=== PATIENT | female | born 1965 | race African-American/Black ===

== ENCOUNTER 2016-06-14 10:44 | Emergency (ER) | payer OTHER ==
[~2016-06-14] VITALS: Ht 175.3 cm; Wt 61.3 kg
[~2016-06-14 10:44] MED LIST: ACYCLOVIR200 MG PO; CATAPRES0.1 MG PO; IRON27 MG PO; IRON325 M1 PO; KEFLEX500 MG PO; LOPRESSOR25 MG PO; PAXIL CR25 MG PO; PERCOCET 5/31 TABLET PO; XANAX0.5 MG PO
[2016-06-14 11:30] VITALS: BP 161/92
== END 2016-06-14 16:51 | disposition left against medical advice (07) ==
LOC: EME 10:44
DX: Z03.89 Encounter for observation for other suspected diseases and conditions ruled out (principal); Z53.21 Procedure and treatment not carried out due to patient leaving prior to being seen by health care provider

== ENCOUNTER 2016-06-14 17:21 | Emergency (ER) | payer OTHER ==
[~2016-06-14] VITALS: Ht 175.3 cm; Wt 60.3 kg
[2016-06-14 18:16] LABS: POINT-OF-CARE METER ID UU13113778
[2016-06-14 18:24] LABS: HEMATOCRIT 41.5 % (36.0-46.0); MCH 27.2 PG (29.0-34.0); MCHC 33.3 G/DL (30.0-36.0); MCV 81.7 FL (83-99); MEAN PLAT.VOLUME 10.3 uM^3 (9.5-12.4); PLATELET COUNT 295 K/uL (156-360); RBC DIS.WIDTH-CV 15.9 % (11.8-14.6); RBC DIS.WIDTH-SD 46.7 % (39-53); RED BLOOD COUNT 5.08 M/uL (3.80-5.20); WHITE BLOOD COUNT 6.9 K/uL (4.1-10.2)
[2016-06-14 18:33] LABS: CHLORIDE 109 mEq/L (99-109); POTASSIUM 4.4 mEq/L (3.7-5.4); SODIUM 143 mEq/L (136-147)
[2016-06-14 18:35] LABS: GLUCOSE 87 mg/dL (70-99)
[2016-06-14 18:36] LABS: ANION GAP 13 MEQ/L (2-14)
[2016-06-14 18:38] LABS: GFR ESTIMATE (CALCULATED) > 59 mL/min/
[2016-06-14 18:39] LABS: UREA NITROGEN (BUN) 6 mg/dL (9-23)
[2016-06-14 18:45] LABS: TROP-I INTERPRETATION NEGATIVE; TROPONIN-I < 0.01 ng/mL (0.0-0.30)
[2016-06-14 22:28] VITALS: BP 160/108
== END 2016-06-14 22:28 | disposition home or self-care (01) ==
LOC: EME 17:21
DX: I10 Essential (primary) hypertension (principal); J44.9 Chronic obstructive pulmonary disease, unspecified; G89.29 Other chronic pain; F17.200 Nicotine dependence, unspecified, uncomplicated
CPT/HCPCS: 71020; 80048; 82948; 84484; 85027; 93005; 99281; 99285

== ENCOUNTER 2016-06-19 18:34 | Observation (INO) | payer OTHER ==
[~2016-06-19] VITALS: Ht 175.3 cm; Wt 58.5 kg
[2016-06-19] MEDS ORDERED: LOSARTAN POTASS25 MG PO (18:55)
[2016-06-19] MEDS ORDERED: DAILY VALUE1 EACH PO (18:57)
[2016-06-19 19:06] LABS: HEMATOCRIT 39.4 % (36.0-46.0); MCH 27.8 PG (29.0-34.0); MCHC 33.8 G/DL (30.0-36.0); MCV 82.3 FL (83-99); MEAN PLAT.VOLUME 10.1 uM^3 (9.5-12.4); PLATELET COUNT 212 K/uL (156-360); RBC DIS.WIDTH-CV 16.5 % (11.8-14.6); RBC DIS.WIDTH-SD 48.9 % (39-53); RED BLOOD COUNT 4.79 M/uL (3.80-5.20); WHITE BLOOD COUNT 5.9 K/uL (4.1-10.2)
[2016-06-19 19:20] LABS: CHLORIDE 108 mEq/L (99-109); POTASSIUM 3.7 mEq/L (3.7-5.4); SODIUM 140 mEq/L (136-147)
[2016-06-19 19:21] LABS: GLUCOSE 100 mg/dL (70-99)
[2016-06-19 19:23] LABS: ANION GAP 9 MEQ/L (2-14)
[2016-06-19 19:25] LABS: GFR ESTIMATE (CALCULATED) > 59 mL/min/
[2016-06-19 19:26] LABS: UREA NITROGEN (BUN) 7 mg/dL (9-23)
[2016-06-19 19:31] LABS: TROP-I INTERPRETATION NEGATIVE; TROPONIN-I < 0.01 ng/mL (0.0-0.30)
[2016-06-19 19:33] LABS: QUANTITATIVE HCG < 4.0 MIU/ML
[2016-06-19] MEDS ORDERED: PAXIL20 MG PO (21:45)
[2016-06-19] MEDS ORDERED: FAMVIR250 MG PO (21:46)
[2016-06-19] MEDS ORDERED: GABAPENTIN600 MG PO (21:46)
[2016-06-19 23:42] VITALS: BP 136/82
[2016-06-20 01:55] LABS: TROP-I INTERPRETATION NEGATIVE; TROPONIN-I < 0.01 ng/mL (0.0-0.30)
[2016-06-20 03:55] VITALS: BP 123/83
[2016-06-20 04:52] LABS: HDL CHOLESTEROL 48 MG/DL (Desirable>=50); LDL CHOLESTEROL 89 mg/dL (Desirable<100); NON-HDL CHOLESTEROL 99 mg/dL (Desirable<160); TOTAL CHOLESTEROL 147 mg/dL (Desirable<200); TRIGLYCERIDES 48 MG/DL (Normal: <150)
[2016-06-20 07:56] LABS: Estimated Average Glucose 94 mg/dL (70-123); HEMOGLOBIN A1c (GLYCOHEMOGLOB) 4.9 % HGB (Below 5.7)
[2016-06-20 09:02] LABS: TROP-I INTERPRETATION NEGATIVE; TROPONIN-I 0.02 ng/mL (0.0-0.30)
[2016-06-20 10:30] VITALS: BP 147/82
[2016-06-20] MEDS ORDERED: PRAVASTATIN SOD40 MG PO (13:12)
[2016-06-20] MEDS ORDERED: HYDROCHLOROTHIA25 MG PO (13:12)
[2016-06-20] MEDS ORDERED: ASPIR-LOW81 MG PO (13:12)
== END 2016-06-20 15:32 | disposition home or self-care (01) ==
LOC: EME 18:34 → EDOF 22:13 → 5WEST 22:13
PROVIDERS: Emergency Medicine; Family Medicine
DX: R20.0 Anesthesia of skin (principal); R07.89 Other chest pain; I16.0 Hypertensive urgency; I10 Essential (primary) hypertension; F41.9 Anxiety disorder, unspecified; F32.9 Major depressive disorder, single episode, unspecified; F17.200 Nicotine dependence, unspecified, uncomplicated; G89.29 Other chronic pain
CPT/HCPCS: 70450; 70551; 71020; 80048; 80061; 83036; 84443; 84484; 84702; 85027; 93005; 93880; 99281; 99285; G0378; J0360

== ENCOUNTER 2016-06-21 20:15 | Emergency (ER) | payer OTHER ==
[~2016-06-21] VITALS: Ht 175.3 cm; Wt 59.0 kg
[~2016-06-21 20:15] MED LIST changes: +ASPIR-LOW81 MG PO; +DAILY VALUE1 EACH PO; +FAMVIR250 MG PO; +GABAPENTIN600 MG PO; +HYDROCHLOROTHIA25 MG PO; +LOSARTAN POTASS25 MG PO; +PAXIL20 MG PO; +PRAVASTATIN SOD40 MG PO
[2016-06-21 21:05] LABS: HEMATOCRIT 38.9 % (36.0-46.0); MCH 27.2 PG (29.0-34.0); MCHC 33.7 G/DL (30.0-36.0); MCV 80.7 FL (83-99); MEAN PLAT.VOLUME 10.1 uM^3 (9.5-12.4); PLATELET COUNT 206 K/uL (156-360); RBC DIS.WIDTH-SD 47.2 % (39-53); RED BLOOD COUNT 4.82 M/uL (3.80-5.20)
[2016-06-21 21:14] LABS: CHLORIDE 102 mEq/L (99-109); POTASSIUM 3.1 mEq/L (3.7-5.4); SODIUM 135 mEq/L (136-147)
[2016-06-21 21:16] LABS: GLUCOSE 83 mg/dL (70-99)
[2016-06-21 21:18] LABS: ANION GAP 11 MEQ/L (2-14); TOTAL BILIRUBIN 0.4 mg/dL (0.0-1.0)
[2016-06-21 21:20] LABS: ALKALINE PHOSPHATASE 63 IU/L (3-129); GFR ESTIMATE (CALCULATED) > 59 mL/min/
[2016-06-21 21:21] LABS: UREA NITROGEN (BUN) 10 mg/dL (9-23)
[2016-06-21 21:32] LABS: QUANTITATIVE HCG < 4.0 MIU/ML
[2016-06-21 22:52] LABS: COLOR RED ((YELLOW)); SPECIFIC GRAVITY 1.005 (1.000-1.030)
[2016-06-21 22:53] LABS: ADD MIUA? YES; RED BLOOD CELLS TNTC /HPF (0-5)
[2016-06-21 22:53] LABS: TROP-I INTERPRETATION NEGATIVE; TROPONIN-I < 0.01 ng/mL (0.0-0.30)
[2016-06-21 22:54] LABS: EPITHELIAL CELLS 1+ /HPF; WHITE BLOOD CELLS 20-30 /HPF (0-5)
[2016-06-21 22:55] LABS: BACTERIA 2+ /HPF; MUCUS NONE SEEN /LPF; UCUL ADDED? YES
[2016-06-22 00:44] VITALS: BP 112/91
== END 2016-06-22 01:26 | disposition home or self-care (01) ==
LOC: EME 20:15
PROVIDERS: Emergency Medicine
DX: R53.1 Weakness (principal); E86.0 Dehydration; T50.2X5A Adverse effect of carbonic-anhydrase inhibitors, benzothiadiazides and other diuretics, initial encounter; F32.9 Major depressive disorder, single episode, unspecified; F41.1 Generalized anxiety disorder
CPT/HCPCS: 80053; 81003; 84484; 84702; 85027; 87086; 93005; 99281; 99284; J7030

== ENCOUNTER 2016-09-09 10:50 | Day surgery (SDC) | payer OTHER ==
[~2016-09-09] VITALS: Ht 175.3 cm; Wt 64.9 kg
[~2016-09-09 10:50] MED LIST changes: +ADVAIR 250/501 DISK IH; +LO-DOSE ASPIRIN81 M2 PO
[2016-09-09 11:10] VITALS: BP 152/93
[2016-09-09 12:38] LABS: METH RESISTANT S AUREUS PCR NEGATIVE (NEGATIVE)
[2016-09-09 12:40] LABS: PROBE CHECK PASS; SPECIMEN PROCESSING CONTROL PASS
== END 2016-09-09 11:30 | disposition home or self-care (01) ==
LOC: 2SOUTH 10:50 → SDC 10:50 → 2SOUTH 10:52 → SDC 11:30 → 2SOUTH 11:34 → EDSTATUS 14:55 → 2SOUTH 16:14
PROVIDERS: Obstetrics & Gynecology Gynecologic Oncology
DX: N92.0 Excessive and frequent menstruation with regular cycle (principal); Z53.8 Procedure and treatment not carried out for other reasons; I10 Essential (primary) hypertension; F17.210 Nicotine dependence, cigarettes, uncomplicated
CPT/HCPCS: 87641; J0690; J2250; J3010

== ENCOUNTER 2016-09-21 08:09 | Emergency (ER) | payer OTHER ==
[~2016-09-21] VITALS: Ht 175.3 cm; Wt 52.1 kg
[2016-09-21] MEDS ORDERED: ZOVIRAX200 MG PO (08:24)
[2016-09-21 09:08] LABS: CHLORIDE 108 mEq/L (99-109); POTASSIUM 3.6 mEq/L (3.7-5.4); SODIUM 142 mEq/L (136-147)
[2016-09-21 09:09] LABS: BASOPHIL COUNT 0.1 K/uL (0-0.1); EOSINOPHIL (%) 0.9 % (0-5); HEMATOCRIT 29.1 % (36.0-46.0); IMMATURE GRANULOCYTE (%) 0.4 % (0.0-0.7); INSTRUMENT ABS NEUTROPHIL CT 3.3 K/uL; LYMPHOCYTE COUNT 0.9 K/uL (1.0-2.8); MCH 22.4 PG (29.0-34.0); MCHC 30.9 G/DL (30.0-36.0); MCV 72.4 FL (83-99); MEAN PLAT.VOLUME 9.9 uM^3 (9.5-12.4); MONOCYTE (%) 6.4 % (3-12); MONOCYTE COUNT 0.3 K/uL (0-0.8); NEUTROPHIL COUNT 3.3 K/uL (1.8-6.4); PLATELET COUNT 343 K/uL (156-360); RBC DIS.WIDTH-CV 16.9 % (11.8-14.6); RBC DIS.WIDTH-SD 43.9 % (39-53); RED BLOOD COUNT 4.02 M/uL (3.80-5.20); WHITE BLOOD COUNT 4.5 K/uL (4.1-10.2)
[2016-09-21 09:10] LABS: GLUCOSE 93 mg/dL (70-99)
[2016-09-21 09:12] LABS: ANION GAP 9 MEQ/L (2-14)
[2016-09-21 09:14] LABS: GFR ESTIMATE (CALCULATED) > 59 mL/min/
[2016-09-21 09:15] LABS: UREA NITROGEN (BUN) 6 mg/dL (9-23)
[2016-09-21] MEDS ORDERED: BENTYL20 MG PO (09:59)
[2016-09-21] MEDS ORDERED: IMODIUM MS REL1 EACH PO (09:59)
[2016-09-21] MEDS ORDERED: ZOFRAN ODT4 MG PO (09:59)
[2016-09-21 10:24] VITALS: BP 145/86
== END 2016-09-21 10:31 | disposition home or self-care (01) ==
LOC: EME 08:09
PROVIDERS: Emergency Medicine
DX: K52.9 Noninfective gastroenteritis and colitis, unspecified (principal); D64.9 Anemia, unspecified; R51 Headache; R05 Cough; J44.9 Chronic obstructive pulmonary disease, unspecified; I10 Essential (primary) hypertension; Z79.82 Long term (current) use of aspirin; F17.200 Nicotine dependence, unspecified, uncomplicated
CPT/HCPCS: 80048; 85025; 99281; 99284; J7030

== ENCOUNTER 2017-02-07 21:54 | Inpatient (IN) | payer OTHER ==
[~2017-02-07] VITALS: Ht 175.3 cm; Wt 61.7 kg
[~2017-02-07 21:54] MED LIST changes: +BENTYL20 MG PO; +IMODIUM MS REL1 EACH PO; +TOPROL XL25 MG PO; +ZOFRAN ODT4 MG PO; +ZOVIRAX200 MG PO
[2017-02-08 13:01] VITALS: BP 182/107
[2017-02-08 13:42] LABS: AMPHETAMINES QUANT VALUE 0 NG/ML; BARBITUATES QUANT VALUE 0 NG/ML; BENZODIAZEPINES QUANT VALUE 0 NG/ML; BENZODIAZEPINES, URINE SCREEN Negative (200 ng/mL); MARIJUANA QUANT VALUE 0 NG/ML; OPIATES QUANTITATIVE VALUE 0 NG/ML; PHENCYCLIDINE QUANT VALUE 0 NG/ML
[2017-02-08 14:24] LABS: METH RESISTANT S AUREUS PCR NEGATIVE (NEGATIVE); PROBE CHECK PASS; SPECIMEN PROCESSING CONTROL PASS
[2017-02-08 20:18] VITALS: BP 180/99
[2017-02-08 20:40] VITALS: BP 148/96
[2017-02-08 20:49] LABS: HEMATOCRIT 40.8 % (36.0-46.0); MCH 30.7 PG (29.0-34.0); MCHC 34.3 G/DL (30.0-36.0); MCV 89.5 FL (83-99); MEAN PLAT.VOLUME 10.3 uM^3 (9.5-12.4); PLATELET COUNT 146 K/uL (156-360); RBC DIS.WIDTH-CV 13.4 % (11.8-14.6); RBC DIS.WIDTH-SD 44.2 % (39-53); RED BLOOD COUNT 4.56 M/uL (3.80-5.20)
[2017-02-08 21:13] LABS: ANION GAP 8 MEQ/L (2-14); CHLORIDE 106 MEQ/L (99-109); GFR ESTIMATE (CALCULATED) > 59 mL/min/; GLUCOSE 98 mg/dL (70-99); POTASSIUM 3.8 MEQ/L (3.7-5.4); SAMPLE HEMOLYSIS CHECK 0; SAMPLE ICTERIC CHECK 0; SAMPLE LIPEMIA CHECK 0; SODIUM 136 MEQ/L (136-147); UREA NITROGEN (BUN) 7 mg/dL (9-23)
[2017-02-08 22:45] VITALS: BP 160/90
[2017-02-09 03:55] VITALS: BP 150/99
[2017-02-09 06:35] LABS: HEMATOCRIT 39.3 % (36.0-46.0); MCHC 33.1 G/DL (30.0-36.0); MCV 87.5 FL (83-99); MEAN PLAT.VOLUME 10.2 uM^3 (9.5-12.4); PLATELET COUNT 147 K/uL (156-360); RED BLOOD COUNT 4.49 M/uL (3.80-5.20); WHITE BLOOD COUNT 15.7 K/uL (4.1-10.2)
[2017-02-09 06:58] VITALS: BP 180/105
[2017-02-09 07:01] LABS: ANION GAP 8 MEQ/L (2-14); CHLORIDE 101 MEQ/L (99-109); GFR ESTIMATE (CALCULATED) > 59 mL/min/; POTASSIUM 3.9 MEQ/L (3.7-5.4); SAMPLE HEMOLYSIS CHECK 0; SAMPLE ICTERIC CHECK 0; SAMPLE LIPEMIA CHECK 0; SODIUM 132 MEQ/L (136-147); UREA NITROGEN (BUN) 8 mg/dL (9-23)
[2017-02-09 07:05] LABS: GLUCOSE 159 mg/dL (70-99)
[2017-02-09 15:53] VITALS: BP 160/94
[2017-02-09 19:23] VITALS: BP 157/79
[2017-02-09 23:19] VITALS: BP 150/90
[2017-02-10 06:56] LABS: HEMATOCRIT 42.1 % (36.0-46.0); MCH 29.6 PG (29.0-34.0); MCHC 34.2 G/DL (30.0-36.0); MCV 86.4 FL (83-99); RBC DIS.WIDTH-CV 12.9 % (11.8-14.6); RBC DIS.WIDTH-SD 40.7 % (39-53); RED BLOOD COUNT 4.87 M/uL (3.80-5.20); WHITE BLOOD COUNT 12.1 K/uL (4.1-10.2)
[2017-02-10 07:23] LABS: ANION GAP 9 MEQ/L (2-14); CHLORIDE 107 MEQ/L (99-109); GFR ESTIMATE (CALCULATED) > 59 mL/min/; POTASSIUM 3.8 MEQ/L (3.7-5.4); SAMPLE HEMOLYSIS CHECK 0; SAMPLE ICTERIC CHECK 0; SAMPLE LIPEMIA CHECK 0; UREA NITROGEN (BUN) 6 mg/dL (9-23)
[2017-02-10 07:30] LABS: GLUCOSE 100 mg/dL (70-99); SODIUM 141 MEQ/L (136-147)
[2017-02-10 07:32] VITALS: BP 144/97
[2017-02-10 07:39] LABS: MEAN PLAT.VOLUME 10.4 uM^3 (9.5-12.4); PLAT.SUFFICIENCY ADEQUATE; PLATELET COUNT 162 K/uL (156-360)
== END 2017-02-10 10:48 | disposition home or self-care (01) | DRG 743 ==
LOC: ENRESERV 21:54 → 2SOUTH 02-08 09:18 → 2EAST 02-08 12:15 → 2SOUTH 02-08 12:32 → ENRESERV 02-08 18:56 → 2EAST 02-08 19:51
PROVIDERS: Obstetrics & Gynecology Gynecologic Oncology
DX: D25.9 Leiomyoma of uterus, unspecified (principal); D06.9 Carcinoma in situ of cervix, unspecified; N13.5 Crossing vessel and stricture of ureter without hydronephrosis; N73.6 Female pelvic peritoneal adhesions (postinfective); L29.9 Pruritus, unspecified; N93.8 Other specified abnormal uterine and vaginal bleeding; D50.0 Iron deficiency anemia secondary to blood loss (chronic); I10 Essential (primary) hypertension; J44.9 Chronic obstructive pulmonary disease, unspecified; F32.9 Major depressive disorder, single episode, unspecified; F41.9 Anxiety disorder, unspecified; F17.210 Nicotine dependence, cigarettes, uncomplicated; Q63.1 Lobulated, fused and horseshoe kidney; Z79.82 Long term (current) use of aspirin
CPT/HCPCS: 36415; 80048; 80306 90; 85027; 86850; 86900; 86901; 86920; 87641; 88307; J0131; J0330; J0690; J1100; J1170; J1885; J2250; J2405; J2710; J2765; J3010

== ENCOUNTER 2017-04-29 18:58 | Emergency (ER) | payer OTHER ==
[~2017-04-29] VITALS: Ht 175.3 cm; Wt 58.3 kg
[2017-04-29 20:24] LABS: BASOPHIL (%) 0.6 % (0-1); EOSINOPHIL (%) 1.1 % (0-5); EOSINOPHIL COUNT 0.1 K/uL (0-0.3); HEMATOCRIT 45.1 % (36.0-46.0); HEMOGLOBIN 15.4 G/DL (11.9-15.5); IMMATURE GRANULOCYTE (%) 0.3 % (0.0-0.7); LYMPHOCYTE (%) 24.9 % (15-42); LYMPHOCYTE COUNT 1.6 K/uL (1.0-2.8); MCH 29.8 PG (29.0-34.0); MCHC 34.1 G/DL (30.0-36.0); MCV 87.2 FL (83-99); MONOCYTE COUNT 0.4 K/uL (0-0.8); NEUTROPHIL (%) 67.1 % (45-76); NEUTROPHIL COUNT 4.4 K/uL (1.8-6.4); PLATELET COUNT 184 K/uL (156-360); RBC DIS.WIDTH-CV 13.3 % (11.8-14.6); RBC DIS.WIDTH-SD 42.8 % (39-53); RED BLOOD COUNT 5.17 M/uL (3.80-5.20); WHITE BLOOD COUNT 6.6 K/uL (4.1-10.2)
[2017-04-29 20:35] LABS: ALBUMIN 3.8 g/dL (3.2-4.8); CHLORIDE 107 mEq/L (99-109); POTASSIUM 4.1 mEq/L (3.7-5.4); SODIUM 141 mEq/L (136-147)
[2017-04-29 20:37] LABS: GLUCOSE 87 mg/dL (70-99); TOTAL PROTEIN 6.9 g/dL (6.4-8.3)
[2017-04-29 20:39] LABS: TOTAL BILIRUBIN 0.4 mg/dL (0.0-1.0)
[2017-04-29 20:41] LABS: ALKALINE PHOSPHATASE 60 IU/L (3-129); GFR ESTIMATE (CALCULATED) > 59 mL/min/
[2017-04-29 20:42] LABS: UREA NITROGEN (BUN) 9 mg/dL (9-23)
[2017-04-29 20:43] LABS: AST (GOT) 22 IU/L (2-34)
[2017-04-29 20:44] LABS: ALT (GPT) 14 IU/L (3-49)
[2017-04-29] MEDS ORDERED: AMLODIPINE BESYL5 MG PO (21:45)
[2017-04-29 23:07] VITALS: BP 147/94
== END 2017-04-29 23:08 | disposition home or self-care (01) ==
LOC: EME → EDBD 18:58 → EME 18:58
PROVIDERS: Emergency Medicine
DX: R51 Headache (principal); R03.0 Elevated blood-pressure reading, without diagnosis of hypertension; F32.9 Major depressive disorder, single episode, unspecified; J44.9 Chronic obstructive pulmonary disease, unspecified; K21.9 Gastro-esophageal reflux disease without esophagitis; R56.9 Unspecified convulsions; D64.9 Anemia, unspecified; F41.9 Anxiety disorder, unspecified; Z88.5 Allergy status to narcotic agent; Z88.8 Allergy status to other drugs, medicaments and biological substances; F17.200 Nicotine dependence, unspecified, uncomplicated
CPT/HCPCS: 70450; 80053; 85025; 99281; 99285; J2765; J7030

== ENCOUNTER 2017-05-01 21:49 | Emergency (ER) | payer OTHER ==
[~2017-05-01] VITALS: Ht 175.3 cm; Wt 57.9 kg
[~2017-05-01 21:49] MED LIST changes: +AMLODIPINE BESYL5 MG PO
[2017-05-01 22:32] LABS: HEMATOCRIT 47.3 % (36.0-46.0); HEMOGLOBIN 16.1 G/DL (11.9-15.5); MCH 30.1 PG (29.0-34.0); MCV 88.6 FL (83-99); RBC DIS.WIDTH-CV 13.4 % (11.8-14.6); RBC DIS.WIDTH-SD 43.5 % (39-53); RED BLOOD COUNT 5.34 M/uL (3.80-5.20); WHITE BLOOD COUNT 7.1 K/uL (4.1-10.2)
[2017-05-01 22:46] LABS: CHLORIDE 106 mEq/L (99-109); POTASSIUM 4.5 mEq/L (3.7-5.4); SODIUM 142 mEq/L (136-147)
[2017-05-01 22:48] LABS: GLUCOSE 124 mg/dL (70-99)
[2017-05-01 22:51] LABS: CREATININE 1.2 mg/dL (0.6-1.3); GFR ESTIMATE (CALCULATED) > 59 mL/min/
[2017-05-01 22:52] LABS: UREA NITROGEN (BUN) 16 mg/dL (9-23)
[2017-05-01 22:58] LABS: TROP-I INTERPRETATION NEGATIVE; TROPONIN-I < 0.01 ng/mL (0.0-0.30)
[2017-05-01 23:28] LABS: PLAT.SUFFICIENCY ADEQUATE; PLATELET COUNT 203 K/uL (156-360)
[2017-05-02 03:27] LABS: TROP-I INTERPRETATION NEGATIVE; TROPONIN-I < 0.01 ng/mL (0.0-0.30)
[2017-05-02 04:54] VITALS: BP 154/98
== END 2017-05-02 04:55 | disposition home or self-care (01) ==
LOC: EME 21:49
DX: R07.9 Chest pain, unspecified (principal); K21.9 Gastro-esophageal reflux disease without esophagitis; I10 Essential (primary) hypertension; J44.9 Chronic obstructive pulmonary disease, unspecified; F32.9 Major depressive disorder, single episode, unspecified; F17.200 Nicotine dependence, unspecified, uncomplicated; Z88.5 Allergy status to narcotic agent; Z88.8 Allergy status to other drugs, medicaments and biological substances
CPT/HCPCS: 71046; 80048; 84484; 85027; 93005

== ENCOUNTER 2017-09-13 18:28 | Emergency (ER) | payer OTHER ==
[~2017-09-13] VITALS: Ht 175.3 cm; Wt 60.1 kg
[2017-09-13 19:39] LABS: HEMATOCRIT 46.2 % (36.0-46.0); HEMOGLOBIN 16.4 G/DL (11.9-15.5); MCH 31.8 PG (29.0-34.0); MCHC 35.5 G/DL (30.0-36.0); MCV 89.5 FL (83-99); RBC DIS.WIDTH-CV 12.7 % (11.8-14.6); RBC DIS.WIDTH-SD 42.2 % (39-53); RED BLOOD COUNT 5.16 M/uL (3.80-5.20); WHITE BLOOD COUNT 7.8 K/uL (4.1-10.2)
[2017-09-13 19:49] LABS: ALBUMIN 3.9 g/dL (3.2-4.8); CHLORIDE 106 mEq/L (99-109); POTASSIUM 4.7 mEq/L (3.7-5.4); SODIUM 140 mEq/L (136-147)
[2017-09-13 19:51] LABS: GLUCOSE 92 mg/dL (70-99); TOTAL PROTEIN 7.5 g/dL (6.4-8.3)
[2017-09-13 19:53] LABS: TOTAL BILIRUBIN 0.4 mg/dL (0.0-1.0)
[2017-09-13 19:55] LABS: ALKALINE PHOSPHATASE 90 IU/L (3-129); CREATININE 1.1 mg/dL (0.6-1.3); GFR ESTIMATE (CALCULATED) > 59 mL/min/
[2017-09-13 19:56] LABS: UREA NITROGEN (BUN) 9 mg/dL (9-23)
[2017-09-13 19:57] LABS: AST (GOT) 27 IU/L (2-34)
[2017-09-13 19:58] LABS: ALT (GPT) 18 IU/L (3-49); LIPASE 20 U/L (1.0-51.0)
[2017-09-13 20:00] LABS: TROP-I INTERPRETATION NEGATIVE; TROPONIN-I < 0.01 ng/mL (0.0-0.30)
[2017-09-13 20:56] LABS: PLAT.SUFFICIENCY ADEQUATE; PLATELET COUNT 150 K/uL (156-360)
[2017-09-13 22:21] LABS: TROP-I INTERPRETATION NEGATIVE; TROPONIN-I < 0.01 ng/mL (0.0-0.30)
[2017-09-13] MEDS ORDERED: MYCELEX10 MG PO (22:47)
[2017-09-13 22:58] VITALS: BP 178/92
== END 2017-09-13 22:59 | disposition home or self-care (01) ==
LOC: EME 18:28 → EXP 18:28
PROVIDERS: Physician Assistant
DX: R07.9 Chest pain, unspecified (principal); F17.200 Nicotine dependence, unspecified, uncomplicated; F32.9 Major depressive disorder, single episode, unspecified; J44.9 Chronic obstructive pulmonary disease, unspecified; K21.9 Gastro-esophageal reflux disease without esophagitis; F41.9 Anxiety disorder, unspecified; Z88.5 Allergy status to narcotic agent; Z86.69 Personal history of other diseases of the nervous system and sense organs
CPT/HCPCS: 71046; 80053; 83690; 84484; 85027; 93005; 99281; 99284